=== PATIENT | female | born 1985 | race Caucasian/White ===

== ENCOUNTER → 2017-05-05 | Outpatient (CLI) | payer OTHER ==
[~2017-05-05] MED LIST: PRENTAB26 PO
--- NOTE | 2017-05-05 09:49 | DIAGNOSTIC IMAGING REPORT ---
CHEST 2 VIEWS ROUTINE CLINICAL HISTORY: Acute upper respiratory infection. Cough. COMPARISON STUDY: No previous studies for comparison. FINDINGS: Lung volumes are normal. No pneumothorax or pleural effusion is present. There is mild left midlung airspace opacity. Right lung is clear. Cardiomediastinal silhouette is normal. Pulmonary vascularity is normal. There is an old healed right clavicular midshaft fracture. IMPRESSION: Mild left midlung opacity. This could reflect an infectious process such as bronchopneumonia or less likely atelectasis. Radiographic follow up to ensure resolution is recommended. Electronically signed by: David Harrington M.D. 05/05/2017 9:48 AM Dictated Date/Time: 05/05/2017 9:43 AM
== END | disposition home or self-care (01) ==
LOC: C.RAD1850 09:08
PROVIDERS: ATTEND Physician Assistant
DX: J06.9 Acute upper respiratory infection, unspecified (principal); R05 Cough

== ENCOUNTER → 2017-05-16 | Outpatient (CLI) | payer OTHER ==
--- NOTE | 2017-05-16 15:21 | DIAGNOSTIC IMAGING REPORT ---
CHEST 2 VIEWS ROUTINE CLINICAL HISTORY: ACUTE UPPER RESPIRATORY INFECTION COMPARISON STUDY: 05/05/2017 FINDINGS: Lungs are now considered clear. No focal infiltrate. Previous infiltrative change has resolved. Diaphragms smooth. IMPRESSION: Negative chest. Lungs are now considered clear. The above report was generated using voice recognition software. It may contain grammatical, syntax or spelling errors. Electronically signed by: Juan Francisco Ng M.D. 05/16/2017 3:20 PM Dictated Date/Time: 05/16/2017 3:19 PM
== END | disposition home or self-care (01) ==
LOC: C.RAD1850 14:59
PROVIDERS: ATTEND Physician Assistant
DX: J06.9 Acute upper respiratory infection, unspecified (principal)

== ENCOUNTER → 2017-09-01 | Outpatient (CLI) | payer OTHER | END | disposition home or self-care (01) | LOC: C.PAPS 09:17 | PROVIDERS: ATTEND Obstetrics & Gynecology | DX: Z12.4 Encounter for screening for malignant neoplasm of cervix (principal) ==